=== PATIENT | female | born 1995 | race Caucasian/White ===

== ENCOUNTER 2016-09-15 23:03 | Emergency (ER) | payer BC ==
[~2016-09-15] VITALS: Ht 165.1 cm; Wt 60.5 kg
[2016-09-15 23:09] VITALS: TEMP 37.1; Ht 165.1 cm; Wt 60.5 kg
[2016-09-15] MEDS ORDERED: LIDOCAINE/EPINEPHRINE 1% 20 ML VIAL INFIL ONE (23:30)
--- NOTE | 2016-09-15 23:35 | EMERGENCY ROOM VISIT NOTE ---
History Report prepared by [employer]ero[employer]: Jak Granger Under the Supervision of: Dr. Ruben Wilson M.D. First contact with patient: 23:15 Chief Complaint: LACERATION/CUT (NON-SUTURE) Stated Complaint: FELL ON ICE, LACERATION ON CHIN Nursing Triage Summary: Patient states "Fell on the sidewalk, hit my chin." History of Present Illness The patient is a 21 year old female who presents to the Emergency Room with complaints of laceration on chin secondary to a fall occurring a few minutes prior to arrival. The patient fell on ice and hit her chin on the sidewalk. She did not bite her tongue. She denies any other injuries. The patient denies loss of consciousness, jaw pain, or any other complaints. Her tetanus shot is up-to- date. She does not have any medical problems. Source of History: patient Onset: a few minutes prior to arrival Position: other (chin) Quality: other (laceration) Associated Symptoms: No LOC Review of Systems See HPI for pertinent positives & negatives. A total of 6 systems reviewed and were otherwise negative. Past Medical & Surgical Medical Problems: (1) No Known Active Medical Problems Family History Patient reports no known family medical history. Social History Smoking Status: Never Smoker Marital Status: single Occupation Status: [employer] student Current/Historical Medications Scheduled Lisdexamfetamine Dimesylate (Vyvanse), 25-50 MG PO DIRECTED Allergies Coded Allergies: No Known Allergies (Unverified , 09/16/16) Physical Exam Vital Signs Date Time Temp Pulse Resp B/P Pulse Ox O2 Delivery O2 Flow Rate FiO2 09/15/16 23:57 71 18 117/73 98 Room Air 09/15/16 23:09 37.1 94 18 110/72 99 Room Air Physical Exam GENERAL: Patient is well appearing and in no acute distress. HEENT: Normocephalic. 2.5 cm scalloped laceration with macerated edges to the right chin, horizontal, mild venous oozing, not grossly contaminated, no foreign bodies appreciated. Mucous membranes moist, no nasal congestion, no scleral icterus. NECK: No stridor, no adenopathy, no meningismus, trachea is midline. EXTREMITIES: Normal motion all extremities, no cyanosis, no edema. NEUROLOGIC: Alert and oriented, no acute motor or sensory deficits, no focal weakness, cranial nerves grossly intact. SKIN: No rash, no jaundice, no diaphoresis. Medical Decision & Procedures Procedure Location: Right chin Total length: 2.5 cm Complexity: Complex Verbal consent was obtained after the risks and benefits were explained, including but not limited to bleeding, scarring, infection, pain, and bone/joint /nerve damage. At this time, the risks of the procedure are less than the risks of NOT performing the procedure. A time out was taken and the correct patient and site identified. The skin was prepped with Betadine. The target area was anesthetized with 2 ml of 1% lidocaine with epinephrine. Copious irrigation was performed using Betadine. The skin was re-prepped with Betadine and a sterile field set. The wound was explored for foreign bodies and none found. Examination revealed no injury to deep structures such as tendons, bone, or significant blood vessels. Debridement was not performed. The wound edges were approximated using 1 deep, 5-0 Vicryl suture and 7, 6-0 Ethilon sutures. Hemostasis and excellent approximation was achieved. Antibacterial ointment and a sterile dressing applied. Detailed wound care instructions and signs and symptoms of infection reviewed with the patient. No complications and the patient tolerated the procedure well. ED Course 2315: The patient was evaluated in room C04. A complete history and physical exam was performed. 2334: I performed laceration repair. Refer to procedure note for details. 0000: Reevaluated the patient. Discussed results and discharge instructions: She verbalized understanding and agreement. The patient is ready for discharge. Medical Decision Differential: Simple Laceration, Complex Laceration, Imbedded Foreign Body, Contamination/Infection Risk, Neurovascular Compromise, Tendon Injury, Compartment Syndrome, as well as Tetanus Status, amongst other pathologies entertained. Pleasant 21 yr old female arrives with laceration to chin. No jaw pain nor evidence of foreign bodies. Secondary to slipping on ice and falling. No headache, neck pain, nor other injuries. No evidence of tongue laceration nor dental injury. Somewhat complicated laceration as deep, macerated and arcing. Closed with one deep stitch and seven skin sutures after copiously irrigating and investigating for FB. As clean wound I feel, no other complaints, seems reasonable holding off on imaging. She tolerated suturing well. Discussed best approach to wound care and monitoring. Advised if issues with scar in future can follow up with plastic surgery, though wound seemed to come together quite well here tonight. Impression Primary Impression: Laceration of chin Scribe Attestation The scribe's documentation has been prepared under my direction and personally reviewed by me in its entirety. I confirm that the note above accurately reflects all work, treatment, procedures, and medical decision making performed by me. Departure Information Dispostion Home / Self-Care Referrals [facility] Forms HOME CARE DOCUMENTATION FORM, IMPORTANT VISIT INFORMATION, WORK / SCHOOL INSTRUCTIONS Patient Instructions A Signature Page, ED Laceration Chin Sutr Tape, [facility] Additional Instructions Follow up with S or ED in 5-6 days for removal of sutures to minimize scarring. Return if signs of infection develop, including swelling, fevers, redness, drainage. Problem Qualifiers Primary Impression: Laceration of chin Encounter type: initial encounter Qualified Codes: S01.81XA - Laceration without foreign body of other part of head, initial encounter
[2016-09-15 23:57] VITALS: BP 117/73; PULSE 71; O2SAT 98
[2016-09-16] MEDS ORDERED: LISD50CA4 PO (00:04)
== END 2016-09-15 23:59 | disposition home or self-care (01) ==
LOC: C.EDB 23:04 → C.EDC 23:59
DX: S01.81XA Laceration without foreign body of other part of head, initial encounter (principal); W01.0XXA Fall on same level from slipping, tripping and stumbling without subsequent striking against object, initial encounter